=== PATIENT | male | born 1975 | race Two or more races ===

== ENCOUNTER 2018-11-13 12:03 | Outpatient (CLI) | payer OTHER ==
[2018-11-13 12:26] LABS: ABG OXYGEN SATURATION 93.4 % (92.0-98.5); ABG PCO2 39.5 mmHg (35.0-45.0); ABG PH 7.425 (7.350-7.450); ABG PO2 68.3 mmHg (75.0-100.0); AaDO2 34.1 mmHg; COHb 0.8 % (0.5-1.5); MetHb 0.4 % (0.0-1.5); O2Hb 92.3 % (94.0-97.0); SITE, ABG Right Radial; VENT MODE, BG RA
== END 2018-11-13 23:59 | disposition home or self-care (01) ==
LOC: RT 12:03
PROVIDERS: ATTEND Internal Medicine Pulmonary Disease
DX: R09.02 Hypoxemia (principal)
CPT/HCPCS: 36600